=== PATIENT | male | born 1945 | race Caucasian/White ===

== ENCOUNTER → 2017-06-16 | Outpatient (CLI) | payer OTHER ==
--- NOTE | 2017-06-16 09:23 | RADRPT ---
EXAM DATE/TIME: 06/16/2017 08:25 [facility] COMPARISON: No previous studies available for comparison. INDICATIONS : Chest heaviness. MEDICAL HISTORY : None. SURGICAL HISTORY : None. ENCOUNTER: Initial ACUITY: 1 year PAIN SCORE: 0/10 LOCATION: Bilateral chest FINDINGS: PA and lateral views of the chest demonstrate the lungs to be symmetrically aerated without evidence of mass, infiltrate or effusion. The cardiomediastinal contours are unremarkable. Osseous structure s are intact. CONCLUSION: No acute disease. Michael Castro MD FACR on June 16, 2017 at 9:21 Board Certified Radiologist. This report was verified electronically.
--- NOTE | 2017-06-16 19:59 | ECHRPT ---
Indication: Chest Pain CONCLUSIONS The left ventricular systolic function is normal with an estimated ejection fraction of 60% Normal left ventricular size. Wall thickness is normal. Aortic valve sclerosis is present. Trace aortic valve regurgitation. BP: / HR: Rhythm: Sinus MEASUREMENTS (Male / Female) Normal Values Technical Quality:Fair 2D ECHO LV Diastolic Diameter PLAX 4.2 cm 4.2 - 5.9 / 3.9 - 5.3 cm LV Systolic Diameter PLAX 3.0 cm IVS Diastolic Thickness 1.0 cm 0.6 - 1.0 / 0.6 - 0.9 cm LVPW Diastolic Thickness 1.0 cm 0.6 - 1.0 / 0.6 - 0.9 cm LV Relative Wall Thickness 0.5 RV Internal Dim ED PLAX 2.9 cm LVOT Diameter 2.0 cm LA Systolic Diameter LX 3.8 cm 3.0 - 4.0 / 2.7 - 3.8 cm LV Ejection Fraction MOD 4C 65.9 % LV Ejection Fraction 4C AL 69.3 % M-MODE Aortic Root Diameter MM 3.6 cm AV Cusp Separation MM 1.8 cm DOPPLER AV Peak Velocity 124.0 cm/s AV Peak Gradient 6.2 mmHg AI Peak Velocity 153.0 cm/s AI Peak Gradient 9.4 mmHg AI Pressure Half Time 2171.0 ms LVOT Peak Velocity 72.1 cm/s LVOT Peak Gradient 2.1 mmHg AV Area Cont Eq pk 1.8 cm MV Area PHT 3.0 cm Mitral E Point Velocity 54.8 cm/s Mitral A Point Velocity 57.8 cm/s Mitral E to A Ratio 0.9 LV E' Lateral Velocity 7.9 cm/s Mitral E to LV E' Lateral Ratio 6.9 LV E' Septal Velocity 6.2 cm/s Mitral E to LV E' Septal Ratio 8.8 FINDINGS LEFT VENTRICLE The left ventricular systolic function is normal with an estimated ejection fraction of 60% Normal left ventricular size. Wall thickness is normal. RIGHT VENTRICLE Normal right ventricular size and systolic function. LEFT ATRIUM The left atrial size is normal. RIGHT ATRIUM The right atrial size is normal. ATRIAL SEPTUM Normal atrial septal thickness without atrial level shunting by limited color doppler interrogation. AORTA The aortic root and proximal ascending aorta are normal in size on limited imaging. MITRAL VALVE Structurally normal mitral valve. No mitral valve stenosis or regurgitation. AORTIC VALVE Trileaflet aortic valve. Aortic valve sclerosis is present. Trace aortic valve regurgitation. TRICUSPID VALVE Structurally normal tricuspid valve. No tricuspid valve stenosis or regurgitation. PULMONARY VALVE The pulmonary valve is not well visualized. VESSELS The inferior vena cava is normal in size. PERICARDIUM No pericardial effusion. Belle Flores MD, FACC (Electronically Signed) Final Date:16 June 2017 19:57
--- NOTE | 2017-06-17 14:44 | HM ---
Date Performed: 06/16/2017 Time Performed: 09:26:00 HOOKUP DATE: 06/16/17 09:26:00 AM Wed ANALYSIS START TIME: 06/16/2017 9:31:00 AM ANALYSIS END TIME: 06/17/2017 9:34:59 AM PATIENT AGE: 71 PATIENT HEIGHT PATIENT WEIGHT DRUG LIST PATIENT DIAGNOSIS: chest pain TEST NARRATIVE: The patient's average heart rate was 65 BPM. No episodes of tachycardia wer e noted. Heart rates less than 50 BPM were noted 1% of the time. No pauses exceeding 2.0 seconds were noted. 144 ventricular ectopics, which represented < 1% of the total beat count, were noted . The highest ventricular ectopic frequency occurred from 07:00 AM to 08:00 AM Sheila. During this kishore e 27 VE(s) occurred. Ventricular ectopics were observed as 144 isolated beat(s) only. No couplets o r runs were noted. 7 supraventricular ectopics, which represented < 1% of the total beat count, w ere noted. The highest supraventricular ectopic frequency occurred from 02:00 AM to 03:00 AM Sheila. D uring this time 3 SVE(s) occurred. No episodes of ST depression (defined as -1.0 mm or more) were noted in channel 1. No episodes of ST depression (defined as -1.0 mm or more) were noted in channel 2. No episodes of ST depression (defined as -1.0 mm or more) were noted in channel 3. TEST INTERPRETATION: Holter monitor demonstrates Sinus rhythm with sinus bradycardia at 45 bpm at 3:00 am. Rare PVC and PAC was noted. One supraventricular triple t was noted. Signed by : Gabe perez
== END ==
LOC: HRAD 07:59
PROVIDERS: ATTEND Internal Medicine
DX: R07.89 Other chest pain (principal); Z82.49 Family history of ischemic heart disease and other diseases of the circulatory system
CPT/HCPCS: 71020; 93225; 93226; 93306

== ENCOUNTER 2017-09-17 05:41 | Day surgery (SDC) | payer OTHER ==
[~2017-09-17] VITALS: Ht 185.4 cm; Wt 95.7 kg
[2017-09-17] MEDS ORDERED: IOHEXOL 350 MG/ML 100 ML BTL (for Cath Lab) OTHER ONE (05:42)
[2017-09-17] MEDS ORDERED: ASPIRIN 325 MG TAB PO SCH (06:00)
[2017-09-17] MEDS ORDERED: NS 1000P @30 MLS/HR (KVO) IV SCH (06:00)
[2017-09-17 06:23] LABS: AUTOMATED NEUTROPHIL # 4.1 TH/MM3 (1.8-7.7); BASOPHIL # 0.1 TH/MM3 (0-0.2); BASOPHIL % 1.1 % (0.0-2.0); EOSINOPHIL # 0.3 TH/MM3 (0-0.4); EOSINOPHIL % 4.7 % (0.0-4.0); HEMATOCRIT 42.3 % (39.0-51.0); HEMOGLOBIN 14.8 GM/DL (13.0-17.0); LYMPH % 21.1 % (9.0-44.0); LYMPHOCYTE # 1.4 TH/MM3 (1.0-4.8); MEAN CELL VOLUME 89.2 FL (80.0-100.0); MEAN CORPUSCULAR HEMOGLOBIN 31.2 PG (27.0-34.0); MEAN PLATELET VOLUME 8.4 FL (7.0-11.0); MONO % 9.5 % (0.0-8.0); MONOCYTE # 0.6 TH/MM3 (0-0.9); NEUT % 63.6 % (16.0-70.0); PLATELET COUNT 212 TH/MM3 (150-450); RED BLOOD COUNT 4.75 MIL/MM3 (4.50-5.90); RED CELL DISTRIBUTION WIDTH 13.3 % (11.6-17.2); WHITE BLOOD COUNT 6.5 TH/MM3 (4.0-11.0)
[2017-09-17 06:31] LABS: INTERNATIONAL NORMALIZED RATIO 1.1 RATIO; PROTHROMBIN TIME - PATIENT 11.1 SEC (9.8-11.6)
[2017-09-17] MEDS ORDERED: ASPI-183 PO (06:32)
[2017-09-17] MEDS ORDERED: ISOS30TA3 PO (06:32)
[2017-09-17] MEDS ORDERED: VITACAP7 PO (06:32)
[2017-09-17] MEDS ORDERED: LEVO175T2 PO (06:32)
[2017-09-17] MEDS ORDERED: METO1TAB42 PO (06:32)
[2017-09-17 06:34] VITALS: BP 139/78; PULSE 53; RESP 18; O2SAT 53
[2017-09-17 06:40] LABS: BICARBONATE 28.5 MEQ/L (21.0-32.0); CALCIUM 8.5 MG/DL (8.5-10.1); CREATININE 1.35 MG/DL (0.60-1.30)
[2017-09-17] MEDS ORDERED: HEPARIN-NS/PF FLUSH BAG 2,000 ML IV FLUSH ONE (07:10)
[2017-09-17] MEDS ORDERED: MIDAZOLAM HCL 2 MG/2 ML VIAL ONE (07:10)
[2017-09-17] MEDS ORDERED: NITROGLYCERIN INJ 5 ML ONE (07:10)
--- NOTE | 2017-09-17 09:09 | CATHPROC ---
[employer] HIS Report Study Information Study Number Admission Scheduled Start Study Start [id number] Sep 17 2017 5:41AM 09/17/2017 Sep 17 2017 7:04AM [place] [facility] Cardiac Catheterization Admit Source Facility Department Other [facility] - Board Certified Family Physician Physician and Clinical Staff Initial Talon Dobbs Operations Systems Specialist Catalina Jovel,RN Recorder Fe Martinez ,RT(R) Scrub Lenka Stout,RT(R) Procedures Performed Procedure Location (Site) Vessel Name Angiogram LV LV Ventricle Coronary Angiograms LCA Left Coronary Coronary Angiograms RCA Right Coronary L Heart Cath Equipment Time Imaging Assistant Description Size Mfg Part Number Used/Scraped TRANSDUCER, TRUWAVE [id number] 07:16 TOPETE GUADALUPE * Used W/STOCKCOCK *[id number] 534-676T *[id number] 534-545T *[id number] 534-546T *[id number] 534-547T *[id number] 534-620T *[id number] 534-617T *[id number] 534-622T *[id number] PIGTAIL ANG. 145 INFINITI [id number] CATHETER *[id number] 07:16 [employer] INDUSTRIES PACK, CCL CUSTOM * Used *[id number] 07:16 [employer]ental [employer] PACER PEN, SKIN DUAL W/ RULER * Used *[id number] PIG ANG 145 DXTERITY 08:37 MEDTRONIC FR 5 [id number] Used CATHETER [id number] 07:16 [employer] MEDICAL SHEATH, FR6.5 PRELUDE 11CM FR 6.5 038ACT Used *[id number] 07:16 [employer] MEDICAL WIRE, 3MMJ .035 180CM 180CM Used *[id number] 07:57 [employer] MEDICAL WIRE, EXCHANGE 260CM 3MMJ 260CM Used *[id number] 07:16 NAMIC MANIFOLD, 4 PORT * Used *[id number] 08:40 NAMIC TUBING, HIGH PRESSURE 20" 20" Used *[id number] 07:16 [employer]COMED OMNIPAQUE, 350 MG, 100ML 100ML [id number] Used 08:29 [employer]COMED OMNIPAQUE, 350 MG, 150ML 150ML [id number] Used 08:29 NYCOMED OMNIPAQUE, 350 MG, 150ML 150ML [id number] Used [id number] 07:16 [facility],WARM AIR CCL * Used *[id number] Equipment Model, Serial, Lot Number and Expiration Data Description Model Number Serial Number Lot Number Expiration Date CHARMAINE HALE 145 DXTERITY CATHETER [id number] 08-04-2019 History: Current Medications Medication Dosage/Unit Route Frequency Last Date/Time Taken ASA LOPRESSOR Imdur Synthroid NTG SL History: Allergies Allergy Reaction No Known Allergies History: Risk Factors Family History of Hypertension Dyslipidemia Previous OR Previous Heart Failure Premature CAD No Yes Yes No No Prior Valve Prior PCI Prior CABG Surgery No No No Cerebrovascular Peripheral Artery Chronic Lung On Dialysis Diabetes Disease Disease Disease No No No Yes No History: Symptoms/Diagnosis Selection Items Chest pain History: Stress Tests Stress or Imaging Studies Performed Yes Standard Exercise Stress Test No Stress Echo No Stress Test SPECT Stress Test SPECT Result Yes Negative Stress Test CMR No Cardiac CTA Cardiac CTA Result Coronary Calcium Score Yes 3VD No History: Other Current Smoker Method Quit Packs a Day Years Used Pack Years No Cigarettes 50 Years Ago 1 4 4 Labs Hgb (g/dl) Hct (%) WBC (l/cumm) Platelets (thousands) 11.60-17.00 35.00-51.00 4.00-11.00 150.00-450.00 14.8 42.3 6.5 212 Glucose (mg/dl) BUN (mg/dl) Creatinine (mg/dl) BUN:Creatinine (1:x) 74.00-106.00 7.00-18.00 0.50-1.30 10.00-20.00 88 26 1.4 18.6 Na (meq/l) K (meq/l) 136.00-145.00 3.50-5.10 143 3.9 INR (PTT:PT) 0.90-1.10 1.1 CPK-MB (ng/ML) 0.50-3.60 Not Drawn Medication Medication Total Dose (Bolus/Oral) Medication Total Dosage/Unit 1% XYLOCAINE 20 mL FENTANYL 50 mcg VERSED 1 mg Medications (Bolus/Oral) Medication Time Given Dosage/Unit Administered By Reason VERSED 09/17/2017 7:44:17 AM 1 mg Catalina Jovel 1 mg VERSED given in lab by Catailna Jovel, RN in Left Antecubital via Peripheral IV. Ordered by Talon Isaacs. 1% XYLOCAINE 09/17/2017 7:47:07 AM 20 mL Talon Long 20 mL 1% XYLOCAINE given in lab by Talon Long in Right Groin via Subcutaneous. Ordered by Talon Long. FENTANYL 09/17/2017 8:10:26 AM 50 mcg Catalina Jovel 50 mcg FENTANYL given in lab by Catalina Jovel RN in Left Antecubital via Peripheral IV. Ordered by Talon Long. Medication (Drip) Medication Time Given Dosage/Unit Concentration/Unit Diluent (ml) Solution IV Solutions 09/17/2017 7:04:21 AM 50 mL (IV) NaCl .9 Patient arrived on IV Solutions in Left Antecubital via Peripheral IV. Pump/Drip Flow using NaCl .9. Initial Case Assessment Cardiovascular HR NIBP Chest Pain 48 133/70 0 Edema Present Skin color Skin None Normal Warm Dry Circulatory - Right Pulses Dorsalis Pedis Femoral 1 2 Scale (0,1,2,3,4,d) Circulatory - Left Pulses Dorsalis Pedis Femoral 1 2 Scale (0,1,2,3,4,d) Circulatory - Lower Extremities Color Lower Right Color Lower Left Normal Normal Neurological State Oriented to time-place- Alert Moves all extremities person Respiration - General Respiration Rate SpO2 (%) (B/min) 20 98 Final Case Assessment Cardiovascular HR NIBP Chest Pain 48 133/70 0 Edema Present Skin color Skin None Normal Warm Dry Circulatory - Right Pulses Dorsalis Pedis Femoral 1 2 Scale (0,1,2,3,4,d) Circulatory - Left Pulses Dorsalis Pedis Femoral 1 2 Scale (0,1,2,3,4,d) Circulatory - Lower Extremities Color Lower Right Color Lower Left Normal Normal Neurological State Oriented to time-place- Alert Moves all extremities person Respiration - General Respiration Rate SpO2 (%) (B/min) 20 98 Chronological Log Time Study Chronological Log 7:04:05 Patient arrived via Bed. 7:04:06 Patient Name, D.O.B, / Armband Verified By R.N. 7:04:06 Consent signed by the physician and the patient and verified by the Board Certified Family Physician staff. 7:04:07 Pre-op and post- op instructions given; patient acknowledges understanding of instructions. 7:04:08 Verbal Stimulation=2 Physical Stimulation=2 Airway=2 Respiration=2 TOTAL=8. (0=absent, 1=li mited, 2=present) 7:04:15 Patient has been NPO for More than 6Hrs. 7:04:15 Skin Breakdown- none per patient 7:04:16 Patient Warmer Placed on the Table. 7:04:18 Tyrell Prominences Protected 7:04:20 IV Warmer Connected To Patient. 7:04:20 A # 20 IV was noted in the Antecubital (left). Grade = 0 7:04:21 Patient arrived on IV Solutions in Left Antecubital via Peripheral IV. Pump/Drip Flow using NaCl .9. 7:04:22 History and physical on the chart or being dictated. Assessment: Initial Case, HR=48 BPM, SSDJ=778/70 mmhg, Chest Pain=0, Edema=None, Color=Normal, S kin = Warm, Dry Right Pulses: Yosvany Ped=1, Femoral=2 Left Pulses: Yosvany Ped=1, Femoral=2 7:04:22 Lower Right Extremities: Color=Normal Lower Left Extremities: Color=Normal Neurological: State=Alert, Ox3, NINA Respiration: Resp=20 B/min, SpO2=98 % Vitals capture started with the following parameters, Patient=Adult, Interval=5 min, Initial Pre hvpel=857 mmHg, 7:08:34 Deflation Rate=5 mmHg, Cuff placed on Unknown 7:09:14 HR=47 bpm, AWKJ=288/70 mmhg, SpO2=97.0 %, Resp=23 B/min, Pain=0, Daljit=10, Fuentes=2 7:14:11 HR=45 bpm, ULVK=394/77 mmhg, SpO2=97.0 %, Resp=16 B/min, Pain=0, Daljit=10, Fuentes=2 7:14:33 Bilateral groins prepped with 2% chlorhexidine, and draped after a 3 minute waiting time. 7:17:30 Pressure channel 1 zeroed. 7:17:43 Reference ECG taken 7:18:44 paged 7:19:14 HR=48 bpm, TXUZ=781/77 mmhg, SpO2=94.0 %, Resp=11 B/min, Pain=0, Daljit=10, Fuentes=2 7:24:09 HR=51 bpm, BMCK=970/74 mmhg, SpO2=95.0 %, Resp=15 B/min 7:29:53 HR=49 bpm, PZGQ=547/75 mmhg, SpO2=97.0 %, Resp=15 B/min 7:34:13 HR=50 bpm, QKBS=153/69 mmhg, SpO2=97.0 %, Resp=20 B/min 7:35:02 MD arrived. 7:39:14 HR=48 bpm, AJLS=133/73 mmhg, SpO2=97.0 %, Resp=26 B/min, Pain=0, Daljit=10, Fuentes=2 Time Out. Correct patient, correct procedure, correct physician, power not loaded with contrast with surgical team 7:43:07 present. Time Out Concurred by MD and individual staff in procedure. 7:44:17 1 mg VERSED given in lab by Catalina Jovel, NORRIS in Left Antecubital via Peripheral IV. Order ed by Talon Long. 7:44:52 HR=45 bpm, CNAX=245/73 mmhg, SpO2=97.0 %, Resp=13 B/min, Pain=0, Daljit=10, Fuentes=2 7:45:22 Case Start 7:47:07 20 mL 1% XYLOCAINE given in lab by Talon Long in Right Groin via Subcutaneous. Ordered by Talon Long. 7:48:24 Access site was Right Femoral Artery. 7:48:32 A SHEATH, FR6.5 PRELUDE 11CM FR 6.5 was advanced into the Fem Art (right) using the Percutan eous technique. 7:49:10 HR=51 bpm, WXRS=559/69 mmhg, SpO2=97.0 %, Resp=16 B/min, Pain=0, Daljit=10, Fuentes=2 A JL 4.5 INFINITI CATHETER FR 6 was advanced over a wire. OMNIPAQUE, 350 MG, 100ML 100ML was use d for 7:49:56 injections. 7:51:45 Catheter was removed A 3DRC INFINITI CATHETER FR 6 was advanced over a wire. OMNIPAQUE, 350 MG, 100ML 100ML was used for 7:52:48 injections. Recorded Pressure: Ao, HR=53, Condition=Condition 1 7:54:30 (Aorta) Ao 121/61/86 7:54:48 HR=51 bpm, EUVM=148/77 mmhg, SpO2=97.0 %, Resp=17 B/min, Pain=0, Daljit=10, Fuentes=2 7:55:12 The RCA was injected and visualized at various angles. OMNIPAQUE, 350 MG, 100ML 100ML used. 7:56:57 The previous wire was exchanged for a WIRE, EXCHANGE 260CM 3MMJ 260CM. 7:57:24 Catheter was removed A JL 5.0 INFINITI CATHETER FR 6 was advanced over a wire. OMNIPAQUE, 350 MG, 100ML 100ML was use d for 7:58:37 injections. 7:59:12 HR=57 bpm, USZN=998/77 mmhg, SpO2=97.0 %, Resp=12 B/min, Pain=0, Daljit=10, Fuentes=2 8:01:25 The LCA was injected and visualized at various angles. OMNIPAQUE, 350 MG, 100ML 100ML used. After removing the current catheter a JL 4.5 INFINITI CATHETER FR 6 was advanced over a WIRE, EX CHANGE 260CM 8:03:57 3MMJ 260CM. 8:04:15 HR=51 bpm, ADYR=695/77 mmhg, SpO2=98.0 %, Resp=23 B/min, Pain=0, Daljit=10, Fuentes=2 8:09:19 HR=49 bpm, LONI=280/76 mmhg, SpO2=97.0 %, Resp=14 B/min, Pain=0, Daljit=10, Fuentes=2 8:10:26 50 mcg FENTANYL given in lab by Catalina Jovel, NORRIS in Left Antecubital via Peripheral IV. O rdered by Talon Long. After removing the current catheter a AL 1 INFINITI CATHETER FR 5 was advanced over a WIRE, EXCH MOISES 260CM 8:13:48 3MMJ 260CM. 8:14:18 HR=51 bpm, SSWA=220/75 mmhg, SpO2=98.0 %, Resp=20 B/min 8:16:32 Catheter was removed A AL 2 INFINITI CATHETER FR 5 was advanced over a wire. OMNIPAQUE, 350 MG, 100ML 100ML was used for 8:17:19 injections. 8:19:13 HR=55 bpm, SNHE=823/72 mmhg, SpO2=94.0 %, Resp=24 B/min, Pain=0, Daljit=10, Fuentes=2 After removing the current catheter a AL 3 INFINITI CATHETER FR 5 was advanced over a WIRE, EXCH MOISES 260CM 8:21:16 3MMJ 260CM. 8:22:53 Catheter was removed A JL 4.0 INFINITI CATHETER FR 6 was advanced over a wire. OMNIPAQUE, 350 MG, 100ML 100ML was use d for 8:23:13 injections. 8:24:18 HR=53 bpm, KVXP=809/70 mmhg, SpO2=94.0 %, Resp=32 B/min, Pain=0, Daljit=10, Fuentes=2 8:28:49 The LCA was injected and visualized at various angles. OMNIPAQUE, 350 MG, 100ML 100ML used. 8:29:13 HR=49 bpm, YHIO=802/67 mmhg, SpO2=95.0 %, Resp=25 B/min, Pain=0, Daljit=10, Fuentes=2 8:34:16 HR=49 bpm, HIRX=252/73 mmhg, SpO2=95.0 %, Resp=23 B/min, Pain=0, Daljit=10, Fuentes=2 After removing the current catheter a PIG ANG 145 DXTERITY CATHETER FR 5 was advanced over a WIR E, EXCHANGE 8:36:36 260CM 3MMJ 260CM. 8:39:19 HR=51 bpm, HZJB=644/70 mmhg, SpO2=97.0 %, Resp=36 B/min, Pain=0, Daljit=10, Fuentes=2 Recorded Pressure: LV, HR=52, Condition=Condition 1 8:39:27 (Left Ventricle) LV 131/6/17 8:41:03 The LV was injected at 10 cc/sec for a total of 40. OMNIPAQUE, 350 MG, 150ML 150ML used. Recorded Pressure: LV, Ao, HR=51, Condition=Condition 1 8:42:26 (Left Ventricle) LV 129/6/15, (Aorta) Ao 134/64/92 8:42:50 Catheter was removed 8:43:26 Case End Assessment: Final Case, HR=48 BPM, XDOH=636/70 mmhg, Chest Pain=0, Edema=None, Color=Normal, Ski n = Warm, Dry Right Pulses: Yosvany Ped=1, Femoral=2 Left Pulses: Yosvany Ped=1, Femoral=2 8:43:32 Lower Right Extremities: Color=Normal Lower Left Extremities: Color=Normal Neurological: State=Alert, Ox3, NINA Respiration: Resp=20 B/min, SpO2=98 % 8:43:46 Catheter(s) removed without difficulty 8:43:51 No case complications noted. 8:43:53 Cine recording checked. 8:43:55 Bedside Report will be given. 8:44:05 A Left Heart Cath was performed. 8:45:01 HR=51 bpm, BSAF=024/78 mmhg, SpO2=98.0 %, Resp=30 B/min, Pain=0, Daljit=10, Fuentes=2 8:46:03 Sheath(s) left in place, will be removed in Holding Area 8:46:05 Sterile dressing applied to site 8:48:02 Vitals capture stopped. 8:53:18 Patient moved to [facility] End Study - Contrast Media Used In Study Contrast Total Opened (mL) Total Used (mL) Total Wasted (mL) Omnipaque 160 160 0 End Study - Maximum Contrast Load Max Contrast Load (mL) 341.7 End Study - Radiation Exposure Fluoro Time (minutes) 17.5 End Study - Patient Disposition Complications Transferred To Interventional Outcome No Telemetry Bed No attempt made
--- NOTE | 2017-09-17 09:37 | MA ---
cc: Talon Long MD, Gregory P DO DATE: 09/17/2017 PROCEDURES PERFORMED: 1. Left heart catheterization. 2. Left ventriculography. 3. Coronary angiography. Technically difficult procedure due to extremely tortuous aorta, multiple catheter exchanges required and unusual anatomy of the left main. BRIEF HISTORY: Jareth Martinez of a 71-year-old man who has been having anginal symptoms described as a low-grade pressure in his chest. He has been tried on antianginal therapy and his symptoms have not improved. He had a nuclear stress test which did not show ischemia, but because of so far ongoing symptoms, he had a coronary CTA. The coronary CTA suggested 3-vessel disease. For this reason, cardiac catheterization was performed. DESCRIPTION OF PROCEDURE: The patient was brought to the cardiac catheterization lab in a fasting state. Using 1% lidocaine for local anesthesia, a 6.5-Russian sheath was inserted in the right femoral artery. This was easy because the right femoral artery has an outstanding pulse. I then decided to do the coronaries before the LV gram because of the elevated creatinine. As I inserted a guidewire up into the arch of the aorta, the arch of the aorta is unlooped and I switched to a 3DRC catheter to carefully get past the aortic arch into the ascending aorta. The 3DRC was then used to image the right coronary artery. I then exchanged over a wire to a left 5 Jesica. The left 4 Jesica sub-selected the circumflex vessel. Orthogonal views were obtained of the circumflex artery. I then tried switching the catheters to more selectively engage the LAD. A left 4.5 was not successful. A left 1, 2 or 3 Amplatz catheter was not successful. Finally, with a left 4 Jesica catheter I was able to position it before the bifurcation of the LAD and circumflex, in a somewhat funnel-shaped left main and was able to get adequate views of the LAD. He has 3-vessel disease which is somewhat complicated so I have elected not to go straight forward into intervention. All these catheter changes were made over a long J exchange wire. I then used an angled pigtail catheter to measure left ventricular pressure, followed by left ventriculography and then a pullback. The sheath is to be pulled manually. I plan to discuss the findings in further detail with the patient and probably get a cardiothoracic surgery consult. FINDINGS: I. HEMODYNAMICS : Left ventricular pressure is 129/6 with an end diastolic pressure of 15. Aortic pressure is 134/64 with a mean of 92. There was no gradient during pullback from the left ventricle to the aorta. II. LEFT VENTRICULOGRAPHY: Left ventriculography shows a symmetrically yeyo left ventricle. Estimated ejection fraction is 55%. There is no mitral regurgitation. The aorta is noted to be significantly ectatic and tortuous. III. 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 There is no narrowing at what would be considered the left main. The left anterior descending artery has about 30% proximal eccentric disease. There are 2 diagonal branches coming off, which are both small and appear unremarkable. The mid and distal LAD are somewhat diffusely diseased. There is a focal area of 70% mid LAD disease. There is also somewhat diffuse segment of 70% distal LAD disease. The circumflex artery gives off a large first obtuse marginal branch which has irregularities only. Just past the obtuse marginal branch. The mid-circumflex has an 80% stenosis, which extends into the origin of the major second obtuse marginal branch. There is marked tortuosity through this segment. The distal circumflex continues as a very small vessel which is subtotally occluded and has only TONG-1 flow. It is also very small. The right coronary artery is dominant. This vessel is also very tortuous proximally. There is a very proximal 80% stenosis and just past this is a second stenosis of about 30-40%. The remainder of the right coronary artery has irregularities and is a well suited target for bypass. CONCLUSIONS: 1. Preserved left ventricular function. 2. Three vessel coronary artery disease which is somewhat complex. 3. 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 RECOMMENDATIONS: The anatomy is complicated enough that my first recommendation at this point would be to go for revascularization with bypass surgery. We will discussed this further with the patient and if he is agreeable we will get a cardiothoracic surgery consult. MD MARY Forman/KERRI , 09:08 AM , 09:36 AM
[2017-09-17] MEDS ORDERED: SODIUM CHLOR 0.9% 1000 ML INJ 1,000 ML IV SCH (09:48)
[2017-09-17] MEDS ORDERED: oxyCODONE/ACETAMINOPHEN 5 MG/325 MG TAB PO PRN (10:00)
[2017-09-17] MEDS ORDERED: BACITRACIN OINT 0.9 GM PKT TOP ONE (10:00)
[2017-09-17] MEDS ORDERED: ONDANSETRON HCL 4 MG/2 ML VIAL IV PUSH PRN (10:00)
--- NOTE | 2017-09-17 11:56 | RADRPT ---
EXAM DATE/TIME: 09/17/2017 11:04 [facility] COMPARISON: No previous studies available for comparison. INDICATIONS : Pre-op CABG. MEDICAL HISTORY : Hypothyroidism. Coronary artery disease. SURGICAL HISTORY : Skin cancer removed. ENCOUNTER: Initial ACUITY: 1 day PAIN SCORE: 0/10 LOCATION: Bilateral legs. TECHNIQUE: Venous ultrasound of the left and right leg was performed from the inguinal ligament to the proximal calf. Real-time, color Doppler and spectral tracing, compression and augmentation techniques were us ed. FINDINGS: RIGHT LEG: There is normal compressibility of the deep venous system from the inguinal region to the proximal ca lf. No echogenic clot is seen in the lumen of the common femoral, femoral, popliteal, and posterior tibial veins. There is a normal response of the venous system to proximal and distal augmentation an d respiration. LEFT LEG: There is normal compressibility of the deep venous system from the inguinal region to the proximal ca lf. No echogenic clot is seen in the lumen of the common femoral, femoral, popliteal, and posterior tibial veins. There is a normal response of the venous system to proximal and distal augmentation an d respiration. CONCLUSION: 1. No sonographic evidence for lower extremity DVT. Teja King MD on September 17, 2017 at 11:53 Board Certified Radiologist. This report was verified electronically.
--- NOTE | 2017-09-17 11:58 | RADRPT ---
EXAM DATE/TIME: 09/17/2017 11:12 [facility] COMPARISON: No previous studies available for comparison. INDICATIONS : Pre-op CABG. MEDICAL HISTORY : Hypothyroidism. Coronary artery disease. SURGICAL HISTORY : Skin cancer removed. ENCOUNTER: Initial ACUITY: 1 day PAIN SCORE: 0/10 LOCATION: Bilateral legs. GREATER SAPHENOUS VEIN THIGH: PROXIMAL: Right 6 mm Left 6 mm MID: Right 4 mm Left 3 mm DISTAL: Right 3 mm Left 4 mm CALF: PROXIMAL: Right 3 mm Left 3 mm MID: Right 1 mm Left 2 mm DISTAL: Right 2 mm Left 1 mm FINDINGS: The venous system of the lower extremities are patent by color Doppler imaging. Measurements of the leg veins (in mm) are listed above. CONCLUSION: Venous mapping as above Michael Castro MD FACR on September 17, 2017 at 11:56 Board Certified Radiologist. This report was verified electronically.
--- NOTE | 2017-09-17 12:08 | RADRPT ---
EXAM DATE/TIME: 09/17/2017 11:33 [facility] COMPARISON: No previous studies available for comparison. INDICATIONS : Pre-op CABG. MEDICAL HISTORY : Hypothyroidism. Coroanry artery disease. SURGICAL HISTORY : Skin cancer removed. ENCOUNTER: Initial ACUITY: 1 day PAIN SCORE: 0/10 LOCATION: Bilateral neck PEAK SYSTOLIC VELOCITIES (cm/sec): ICA/CCA RATIO: Right: 1.3 Left: 1.0 ICA: Right: 83 Left: 54 CCA: Right: 64 Left: 57 ECA: Right: 50 Left: 66 VERTEBRAL: Right: 41 antegrade Left: 41 antegrade Elevated flow velocities and ICA/CCA ratios have been found to correlate with increased degrees of vessel stenosis, calculated as percentage of diameter relative to a normal segment of distal ICA/CCA FINDINGS: RIGHT CAROTID: No significant stenosis is visualized. There is mild calcified and noncalcified plaque in the caroti d bulb and proximal internal coronary artery. The waveforms are within normal limits. LEFT CAROTID: No significant stenosis is visualized. There is mild calcified and noncalcified plaque in the caroti d bulb and proximal internal cord artery. The waveforms are within normal limits. VERTEBRAL ARTERIES: Antegrade flow is seen in both vertebral arteries. MISCELLANEOUS: None. CONCLUSION: 1. Mild atherosclerotic plaque in the carotid bulbs and proximal internal carotid arteries bilaterall y. However, no significant stenosis is identified within either internal carotid artery (less than 50 % stenosis). 2. There is antegrade flow within both vertebral arteries. Mayank Malik MD on September 17, 2017 at 12:05 Board Certified Radiologist. This report was verified electronically.
--- NOTE | 2017-09-17 16:05 | RADRPT ---
EXAM DATE/TIME: 09/17/2017 15:52 [facility] COMPARISON: CHEST PA & LAT, June 16, 2017, 8:25. INDICATIONS : Pre-operative for CABG on 09/21/17. Evaluate for pneumothorax, pneumonia, or communicable disease. MEDICAL HISTORY : Hypothyroidism. Coroanry artery disease. SURGICAL HISTORY : Skin cancer removed. ENCOUNTER: Initial ACUITY: 1 day PAIN SCORE: 0/10 LOCATION: Bilateral chest FINDINGS: PA and lateral views of the chest demonstrate the lungs to be hyperaerated without evidence of mass, infiltrate or effusion. The cardiomediastinal contours are unremarkable. Osseous structures are int act. CONCLUSION: No acute disease. Vladimir Lazcano MD on September 17, 2017 at 16:03 Board Certified Radiologist. This report was verified electronically.
[2017-09-17 16:52] LABS: BILIRUBIN, URINE NEG (NEG); BLOOD, URINE NEG (NEG); GLUCOSE,URINE NEG (NEG); KETONE, URINE NEG (NEG); NITRITE,URINE NEG (NEG); PH, URINE 5.5 (5.0-8.5); URINE COLOR YELLOW (YELLW/STRAW); URINE LEUKOCYTE ESTERASE NEG (NEG)
--- NOTE | 2017-09-17 17:47 | PD.CAR.PN ---
CVT Progress Note Subjective/Hospital Course: pt seen and evaluated , full note dictated sts data discussed with pt RISK SCORES About the STS Risk Calculator Procedure: CAB Only Risk of Mortality: 1.196% Morbidity or Mortality: 11.942% Long Length of Stay: 4.067% Short Length of Stay: 49.336% Permanent Stroke: 0.832% Prolonged Ventilation: 7.141% DSW Infection: 0.399% Renal Failure: 4.297% Reoperation: 4.178% Objective: Vital Signs Date Time Temp Pulse Resp B/P (MAP) Pulse Ox O2 Delivery O2 Flow Rate FiO2 09/17/17 08:58 98 Room Air 09/17/17 06:34 53 18 139/78 (98) 53 Labs: Laboratory Tests Test 09/17/17 06:09 09/17/17 14:30 09/17/17 15:00 White Blood Count 6.5 TH/MM3 (4.0-11.0) Red Blood Count 4.75 MIL/MM3 (4.50-5.90) Hemoglobin 14.8 GM/DL (13.0-17.0) Hematocrit 42.3 % (39.0-51.0) Mean Corpuscular Volume 89.2 FL (80.0-100.0) Mean Corpuscular Hemoglobin 31.2 PG (27.0-34.0) Mean Corpuscular Hemoglobin Concent 35.0 % (32.0-36.0) Red Cell Distribution Width 13.3 % (11.6-17.2) Platelet Count 212 TH/MM3 (150-450) Mean Platelet Volume 8.4 FL (7.0-11.0) Neutrophils (%) (Auto) 63.6 % (16.0-70.0) Lymphocytes (%) (Auto) 21.1 % (9.0-44.0) Monocytes (%) (Auto) 9.5 % (0.0-8.0) Eosinophils (%) (Auto) 4.7 % (0.0-4.0) Basophils (%) (Auto) 1.1 % (0.0-2.0) Neutrophils # (Auto) 4.1 TH/MM3 (1.8-7.7) Lymphocytes # (Auto) 1.4 TH/MM3 (1.0-4.8) Monocytes # (Auto) 0.6 TH/MM3 (0-0.9) Eosinophils # (Auto) 0.3 TH/MM3 (0-0.4) Basophils # (Auto) 0.1 TH/MM3 (0-0.2) CBC Comment DIFF FINAL Differential Comment Prothrombin Time 11.1 SEC (9.8-11.6) Prothromb Time International Ratio 1.1 RATIO Blood Urea Nitrogen 26 MG/DL (7-18) Creatinine 1.35 MG/DL (0.60-1.30) Random Glucose 88 MG/DL (74-106) Calcium Level 8.5 MG/DL (8.5-10.1) Sodium Level 143 MEQ/L (136-145) Potassium Level 3.9 MEQ/L (3.5-5.1) Chloride Level 107 MEQ/L (98-107) Carbon Dioxide Level 28.5 MEQ/L (21.0-32.0) Anion Gap 8 MEQ/L (5-15) Estimat Glomerular Filtration Rate 52 ML/MIN (>89) Urine Color YELLOW (YELLW/STRAW) Urine Turbidity CLEAR (CLEAR) Urine pH 5.5 (5.0-8.5) Urine Specific [place] GREATER THAN 1.050 Urine Protein TRACE mg/dL (NEG-TRACE) Urine Glucose (UA) NEG mg/dL (NEG) Urine Ketones NEG mg/dL (NEG) Urine Occult Blood NEG (NEG) Urine Nitrite NEG (NEG) Urine Bilirubin NEG (NEG) Urine Urobilinogen LESS THAN 2.0 MG/DL (LESS Urine Leukocyte Esterase NEG (NEG) Microscopic Urinalysis Comment CULT NOT INDICATED Result Diagram: 09/17/17 0609 09/17/17 0609 Lien Elomre Sep 17, 2017 17:47
--- NOTE | 2017-09-17 19:22 | MB ---
cc: Barbara Boudreaux MD DATE: 09/17/2017 HISTORY OF PRESENT ILLNESS: This 71-year-old patient of Dr. Zaid Escamilla and Dr. Talon Long reports some chest discomfort with some left arm pain, even occurred after starting some Imdur, underwent cardiac catheterization electively today by Dr. Long showing an ejection fraction of 55%. He had mid distal stenosis 70%, the circ at 80%, the RCA 80%. We were consulted to evaluate for coronary artery bypass grafting. The aorta was somewhat torturous. The CT scan was reviewed by Dr. Barbara Boudreaux. PAST MEDICAL HISTORY: Coronary artery disease, angina, eczema, hyperlipidemia, hypertension, skin cancer, sleep apnea, statin intolerance. PAST SURGICAL HISTORY: Include rectal fissure repair, umbilical hernia repair. ALLERGIES: NO KNOWN ALLERGIES: HOME MEDICATIONS: 1. Aspirin. 2. Imdur. 3. Levothyroxine. 4. Metoprolol. FAMILY HISTORY: Mother at 69 from cardiomyopathy. Father from heart disease at 63. SOCIAL HISTORY: The patient is , smoked for about 4 years, quit 50 years ago. No alcohol. , 3 children, worked in manufacturing. REVIEW OF SYSTEMS: GENERAL: No night sweats, fever, heat and cold intolerance. SKIN: No psoriasis, itching or hives. HEENT: No blurred vision, hearing loss. RESPIRATORY: No cough, shortness of breath. CARDIOVASCULAR: As above in the HPI. GASTROINTESTINAL: No diarrhea or vomiting. GENITOURINARY: No burning, frequency, urgency. CENTRAL NERVOUS SYSTEM: No history of TIA, CVA or seizure disorder. ENDOCRINOLOGY: Positive for hypothyroidism. PHYSICAL EXAMINATION: VITAL SIGNS: Blood pressure 140/70, heart rate of 50, room air saturation 98, afebrile. GENERAL: The patient is awake, alert, in no acute distress. HEENT: Head is normocephalic, atraumatic. Pupils equal and reactive. Oral mucosa pink, moist. NECK: Supple. No JVD. HEART: Sounds S1, S2. Regular rate and rhythm. No rubs, murmurs, or gallops. LUNGS: Clear to auscultation. No wheezes, rales or rhonchi. ABDOMEN: Soft, nontender. No masses or organomegaly. EXTREMITIES: No cyanosis, clubbing, or edema. LABORATORY WORK: Shows hemoglobin 14, hematocrit of 42, white cell count is 6.5, platelet count of 212. Sodium 143, potassium 3.9, BUN 26 with a creatinine of 1.35. Hemoglobin A1c pending. INR 1.1. Urinalysis is unremarkable. MRSA screen pending. DIAGNOSTIC STUDIES: Carotid ultrasound shows some mild atherosclerotic plaques in the carotid bulbs, less than 50 percent stenosis. Chest x-ray: No acute disease. Lower extremity ultrasound: No DVT. Vein targets in the legs are good. IMPRESSION AND PLAN: This is a 71-year-old patient with multivessel disease. Cardiac films have already been evaluated by Dr. Barbara Boudreaux. At this time, procedures, alternatives and risks have been discussed with the patient, and the patient is agreeable to proceed. Plan will be for the 09/28/2017 as an elective surgery. Dictated by KETAN Tai MD OSWALDO Abbott/PIERRE , 05:45 PM , 07:21 PM
--- NOTE | 2017-09-17 20:40 | EKG ---
Date Performed: 09/17/2017 Time Performed: 06:16:34 PTAGE: 71 years EKG: Sinus bradycardia Interpretation accuracy is limited due to baseline borderline artifact Re polarization abnormality Normal ECG except for rate NO PREVIOUS TRACING DOCTOR: Christophe Orellana Interpretating Date/Time 09/17/2017 20:39:18
[2017-09-17 22:00] LABS: HEMOGLOBIN A1C 5.4 % (4.3-6.0)
== END 2017-09-17 16:20 | disposition home or self-care (01) ==
LOC: HDOC 05:41 → HDIC 05:41 → HDOC 16:20
PROVIDERS: ATTEND Internal Medicine Cardiovascular Disease
DX: R07.9 Chest pain, unspecified (principal); I25.10 Atherosclerotic heart disease of native coronary artery without angina pectoris; I77.1 Stricture of artery; Z79.899 Other long term (current) drug therapy; E03.9 Hypothyroidism, unspecified; I65.29 Occlusion and stenosis of unspecified carotid artery; G47.30 Sleep apnea, unspecified
CPT/HCPCS: 71046; 80048; 81001; 83036; 85025; 85610; 86850; 86900; 86901; 87641; 93005; 93458; 93880; 93970; 93998; 94010; 99152; 99153; C1769; C1893; J1644; J2250; J3010; Q9967

== ENCOUNTER 2017-09-28 05:35 | Inpatient (IN) | payer OTHER, MEDICARE ==
[2017-09-28] VITALS (8 sets, daily range): BP systolic 110–137; BP diastolic 48–76; PULSE 57–87; RESP 12–16; TEMP 96.8–97.4; O2SAT 96–99
[~2017-09-28] VITALS: Ht 185.4 cm; Wt 101.5 kg
[~2017-09-28 05:35] MED LIST: ASPI-183 PO; ISOS30TA3 PO; LEVO175T2 PO; METO1TAB42 PO; VITACAP7 PO
[2017-09-28] MEDS ORDERED: INSULIN REGULAR 100 UNITS in NS 100 ML IV PRN (06:00)
[2017-09-28] MEDS ORDERED: METOPROLOL TARTRATE 25 MG TAB PO SCH (06:00)
[2017-09-28] MEDS ORDERED: POVIDONE IODINE 5% (ANTISEPSIS KIT) 4 APPLICATIONS EACH NARE PRN (06:00)
[2017-09-28] MEDS ORDERED: CEFAZOLIN 500 MG in NS IRR BTL 500 ML IRRIGATION SCH (06:00)
[2017-09-28] MEDS ORDERED: DEXTROSE 50% IN WATER 50 ML VIAL(D50) IV PUSH PRN ×2 (06:00→13:30)
[2017-09-28] MEDS ORDERED: CEFAZOLIN INJ 2,000 MG in SODIUM CHLORIDE 0.9% INJ 100 ML IV SCH (06:00)
[2017-09-28] MEDS ORDERED: SODIUM CHLORID 0.9% 500 ML IV PRN (06:00)
[2017-09-28] MEDS ORDERED: CHLORHEXIDINE GLUCONATE 2 % 1 PACK (2 CLOTHS) TOPICAL PRN (06:00)
[2017-09-28] MEDS ORDERED: CHLORHEXIDINE GLUCONATE 4% SOLN 120 ML BTL TOPICAL SCH (06:00)
[2017-09-28] MEDS ORDERED: PAPAVERINE 60 MG-NITROGLYCERIN 100 MCG-DILTIAZEM 100 MG in NS 100 ML IRRIGATION SCH ×4 (06:00)
[2017-09-28] MEDS ORDERED: SODIUM CHLORIDE 0.9% FLUSH 10 ML FLUSH IV FLUSH PRN ×3 (06:00→13:00)
[2017-09-28] MEDS: LACTATED RINGER'S 1000 ML IV PRN ×2 (06:15→17:25)
[2017-09-28] MEDS ORDERED: ceFAZolin INJ 1,000 MG VIAL ONE (06:24)
[2017-09-28] MEDS ORDERED: methylPREDNISolone SOD SUCC 125 MG/2 ML VIAL ONE (06:24)
[2017-09-28] MEDS ORDERED: VANCOMYCIN HCL 1000 MG VIAL ONE (06:25)
[2017-09-28] MEDS ORDERED: HEPARIN SODIUM - SQ 10,000 UNITS/ML VIAL ONE (06:25)
[2017-09-28] MEDS ORDERED: ACETAMINOPHEN 1000 MG/100 ML 100 ML IV ONE (06:46)
[2017-09-28] MEDS ORDERED: SUGAMMADEX SODIUM 200 MG/2 ML VIAL IV PUSH ONE (06:46)
[2017-09-28] MEDS ORDERED: fentaNYL CITRATE 250 MCG/5 ML AMP ONE (06:47)
[2017-09-28] MEDS ORDERED: MIDAZOLAM HCL 5 MG/5 ML VIAL ONE (06:47)
[2017-09-28] MEDS ORDERED: CARDIOPLEGIC IRR 2,000 ML ONE (07:55)
[2017-09-28] MEDS ORDERED: POTASSIUM CHLORIDE 20 MEQ/10 ML VIAL ONE (07:55)
[2017-09-28] MEDS ORDERED: SODIUM BICARBONATE 8.4% INJ 50 ML ONE (07:55)
[2017-09-28] MEDS ORDERED: MANNITOL INJ 100 ML ONE (07:56)
[2017-09-28] MEDS ORDERED: CALCIUM CHLORIDE 10% SOLN 1 GRAM/10 ML SYR ONE (07:56)
[2017-09-28] MEDS ORDERED: ALBUMIN 25% INJ 50 ML IV ONE (07:57)
[2017-09-28] MEDS ORDERED: HEPARIN SODIUM - IV 10,000 UNITS/10 ML VIAL ONE (07:57)
[2017-09-28] MEDS ORDERED: PROTAMINE SULFATE 50 MG/5 ML VIAL ONE (10:55)
[2017-09-28] MEDS ORDERED: SODIUM CHLOR 0.9% 250 ML INJ 750 ML IV ONE (12:00)
[2017-09-28] MEDS ORDERED: ARTIFICIAL TEARS OPTH OINT 3.5 APPLIC/3.5 GM TUBO EACH EYE ONE (12:00)
[2017-09-28] MEDS ORDERED: NS 100 ML (PAB BAG) 200 ML IV ONE (12:00)
[2017-09-28] MEDS ORDERED: PHENYLEPH/NS 1000 MCG/10 ML SYR IV ONE (12:00)
[2017-09-28] MEDS ORDERED: NITROGLYCERIN 50 MG/DEXTROSE 5% SOLN 250 ML BTL IV ONE (12:00)
[2017-09-28] MEDS ORDERED: VECURONIUM BROMIDE 10 MG VIAL IV ONE (12:00)
[2017-09-28] MEDS ORDERED: LACTATED RINGER'S 1000 ML INJ 2,000 ML IV ONE (12:00)
[2017-09-28] MEDS ORDERED: HEPARIN SODIUM - SQ 10,000 UNITS/ML VIAL OTHER ONE (12:00)
[2017-09-28] MEDS ORDERED: NORMOSOL R INJ 2,000 ML IV ONE (12:00)
[2017-09-28] MEDS ORDERED: TRANEXAMIC ACID INJ 1,000 MG/10 ML AMP IV ONE (12:00)
[2017-09-28] MEDS ORDERED: PROTAMINE SULFATE 50 MG/5 ML VIAL IV ONE (12:00)
[2017-09-28] MEDS ORDERED: LIDOCAINE HCL 1% PF 5 ML AMPULE OTHER ONE (12:00)
[2017-09-28] MEDS ORDERED: SODIUM CHLORID 0.9% 500 ML INJ 500 ML IV ONE (12:00)
[2017-09-28] MEDS ORDERED: MAGNESIUM SULFATE 1 GM/2 ML VIAL IV ONE (12:00)
[2017-09-28] MEDS ORDERED: DEXMEDETOMIDINE HCL 200 MCG/2 ML VIAL IV ONE (12:00)
[2017-09-28] MEDS ORDERED: PHENYLEPHRINE HCL 10 MG/ML VIAL IV ONE (12:00)
[2017-09-28] MEDS ORDERED: CALCIUM CHLORIDE INJ 1 GM in SODIUM CHLORIDE 0.9% INJ 100 ML IV PRN (12:15)
--- NOTE | 2017-09-28 12:17 | PD.OP ---
cc: Barbara Boudreaux MD; Talon Long MD Operative Report Date of Surgery: Sep 28, 2017 Preoperative Diagnosis: (1) CAD (coronary artery disease) (2) Angina pectoris Postoperative Diagnosis: same Procedure: CABG x 3 DE JESUS to LAD - fair SVG to OM2 - good SVG to PDA - good EVH Anesthesia: Dr. Marinelli Surgeon: Barbara Boudreaux Radiation Monitor(s): MUNIR Abdalla Operation and Findings: The risks, benefits, complications, treatment options, and expected outcomes were discussed with the patient. The possibilities of reaction to medication, pulmonary aspiration, perforation of viscus, bleeding, recurrent infection, the need for additional procedures, failure to diagnose a condition, and creating a complication requiring transfusion or operation were discussed with the patient. The patient concurred with the proposed plan, giving informed consent. The site of surgery properly noted/marked. The patient was taken to Operating Room, identified as Jareth Martinez and the procedure verified as CABG, EVH. A Time Out was held and the above information confirmed. Standard monitoring lines and Mora catheter were placed. General anesthesia was induced. The patient was prepped and draped in a sterile fashion. A median sternotomy was performed and electrocautery was used to obtain hemostasis. The left internal mammary artery was procured as a pedicle from the 7th rib to the 1st rib in the usual manner. Simultaneously left greater saphenous vein was procured from the left leg using a minimally invasive endoscopic technique. The vein was prepared for anastomosis and the leg wound was irrigated and closed in 2 layers. The pericardium was opened and a pericardial sling was created using interrupted 0 silk sutures. The patient was heparinized for cardiopulmonary bypass and the distal mammary pedicle was instrumented for anastomosis. The heart was instrumented for cardiopulmonary bypass in the usual manner. Antegrade blood cardioplegia was employed. The patient was placed on cardiopulmonary bypass. An aortic cross-clamp was applied and the heart was arrested using cold blood cardioplegia. Antegrade cardioplegia was administered after he each anastomosis. After adequate arrest, the distal right coronary circulation was investigated and the PDA was opened with a Hoopa blade and found to be a 1.5 millimeter good target. Saphenous vein was approximated to the RCA artery using a running 7 0 Prolene suture. The graft was measured for length and orientation and the proximal anastomosis was constructed to the ascending aorta using a running 5 0 Prolene suture after creating an aortotomy with a 5 millimeter punch. The 2nd circumflex marginal artery was then opened with a [place]opa blade and found to be a 1.5 millimeter good target. Saphenous vein was approximated to the OM2 artery using a running 7 0 Prolene suture. The graft was measured for length and orientation and was suspended from the pericardium. The distal LAD was opened with a [place] blade and found to be a 1.5 millimeter diffusely diseased fair target. The left internal mammary artery was approximated to the LAD using a running 7 0 Prolene suture. The pedicle was attached to the epicardium using interrupted 5 0 silk suture. The patient was systemically rewarmed and received a hotshot dose of warm blood cardioplegia. The aorta was vented and the proximal anastomosis to the OM2 graft was accomplished using a running 5 0 Prolene suture after creating an aortotomy was a 5 millimeter punch. The cross -clamp was removed and all proximal and distal anastomoses were examined for hemostasis. The patient was weaned from cardiopulmonary bypass. Protamine was given. There was no adverse reaction. Decannulation was carried out without incident. Wound was checked for hemostasis which was obtained using electrocautery. A 36 Azeri mediastinal and 32 Azeri left pleural chest tubes were placed and secured to the skin with 0 silk suture. The sternum was closed with stainless steel wire. The fascia was closed with 1. PDS. The subcutaneous tissue was closed using a running 2-0 Vicryl suture. The skin was closed with 4- 0 Monocryl. Sterile dressings were placed. At the end of the operation, all sponge, instruments, and needle counts were correct. The patient was transferred to the CVICU in stable condition. Findings: Diffuse disease in the LAD XC: 49 min CPB: 57 min Drains: mediastinal x 1 pleural x 1 Complications: none Disposition: to CVICU in stable condition Barbara Boudreaux MD Sep 28, 2017 12:17
[2017-09-28] MEDS ORDERED: POTASSIUM CHLOR 20 MEQ PREMIX 100 ML IV PRN ×2 (13:00→13:15)
[2017-09-28] MEDS ORDERED: ONDANSETRON HCL 4 MG/2 ML VIAL IV PUSH PRN (13:15)
[2017-09-28] MEDS ORDERED: POTASSIUM CHLORIDE 20 MEQ CONTROLLED RELEASE TAB PO PRN ×2 (13:15)
[2017-09-28] MEDS: ACETAMINOPHEN 1000 MG/100 ML 100 ML IV SCH ×2 (13:15→17:23)
[2017-09-28] MEDS ORDERED: LACTATED RINGER'S 1000 ML INJ 500 ML IV PRN (13:15)
[2017-09-28] MEDS ORDERED: RESP: RACEPINEPHRINE 2.25% 0.5 ML NEB NEB PRN (13:15)
[2017-09-28] MEDS ORDERED: MAGNESIUM SULFATE INJ 2 GM in SODIUM CHLORIDE 0.9% INJ 100 ML IV PRN ×2 (13:15→13:30)
[2017-09-28] MEDS ORDERED: ACETAMINOPHEN 650 MG SUPP RECTAL PRN (13:15)
[2017-09-28] MEDS ORDERED: SODIUM BICARBONATE 8.4% SOLN 50 MEQ/50 ML VIAL IV PUSH PRN ×2 (13:15)
[2017-09-28] MEDS ORDERED: METOPROLOL TARTRATE 5 MG/5 ML VIAL IV PUSH PRN (13:15)
[2017-09-28] MEDS ORDERED: ACETAMINOPHEN 325 MG TAB PO PRN (13:15)
[2017-09-28] MEDS ORDERED: DEXMEDETOMIDINE INJ 200 MCG in SODIUM CHLORIDE 0.9% INJ 50 ML IV PRN (13:15)
[2017-09-28] MEDS ORDERED: hydrALAZINE HCL 20 MG/ML VIAL IV PUSH PRN (13:15)
[2017-09-28] MEDS ORDERED: ALBUMIN 5% INJ 250 ML IV PRN (13:15)
[2017-09-28] MEDS ORDERED: RESP: ALBUTEROL 2.5 MG/IPRATROPIUM 0.5 MG NEB (PRN) NEB (13:15)
[2017-09-28] MEDS ORDERED: CALCIUM CHLORIDE 10% 1 GRAM/10 ML VIAL IV PUSH PRN (13:15)
--- NOTE | 2017-09-28 13:16 | RADRPT ---
EXAM DATE/TIME: 09/28/2017 12:38 [facility] COMPARISON: No previous studies available for comparison. INDICATIONS : Status Post CABG. MEDICAL HISTORY : Hypothyroidism. Coroanry artery disease SURGICAL HISTORY : Skin CA removed. ENCOUNTER: Initial ACUITY: 1 day PAIN SCORE: Non-responsive. LOCATION: Bilateral chest FINDINGS: Intermedi and sternotomy and CABG. Mediastinal drain and left chest tube present. No pneumothorax. Mi nimal perihilar and basilar atelectasis. There is a right internal jugular central venous catheter with tip in the superior vena cava. Endotracheal tube tip is approximately 4.5 cm above the maria l. There is a nasogastric tube coursing into the stomach. CONCLUSION: Trace atelectasis after median sternotomy and CABG. No pneumothorax. Mayank Avery MD on September 28, 2017 at 13:12 Board Certified Radiologist. This report was verified electronically.
[2017-09-28] MEDS ORDERED: RASS Change Order XX ONE (13:30)
[2017-09-28] MEDS ORDERED: GLUCAGON 1 MG/ML VIAL OTHER PRN (13:30)
[2017-09-28] MEDS ORDERED: INSULIN REGULAR (IV INFUSION) 100 UNITS in SODIUM CHLORIDE 0.9% INJ 99 ML IV PRN (13:30)
[2017-09-28] MEDS: CLEVIDIPINE INJ 50 ML IV PRN ×2 (13:51→22:30)
[2017-09-28] MEDS ORDERED: Post-op Orders (for Pharmacy) OTHER ONE (14:00)
[2017-09-28] MEDS: AMIODARONE 200 MG TAB PO SCH ×2 (14:00→22:27)
--- NOTE | 2017-09-28 14:46 | PD.CAR.PN ---
CVT Progress Note Subjective/Hospital Course: 71-year-old patient of Dr. Zaid Escamilla and Dr. Talon Long initially seen , who at that time reported some chest discomfort with some left arm pain , even occurred after starting some Imdur, underwent cardiac catheterization Dr. Long showing an ejection fraction of 55%. He had mid distal stenosis 70% , the circ at 80%, the RCA 80%. We were consulted to evaluate for coronary artery bypass grafting. The aorta was somewhat torturous. The CT scan was reviewed by Dr. Barbara Boudreaux. EF 60% PAST MEDICAL HISTORY: Coronary artery disease, angina, eczema, hyperlipidemia, hypertension, skin cancer, sleep apnea, statin intolerance, PAST SURGICAL HISTORY: Include rectal fissure repair, umbilical hernia repair. Objective: Vital Signs Date Time Temp Pulse Resp B/P (MAP) Pulse Ox O2 Delivery O2 Flow Rate FiO2 09/28/17 14:02 97 Nasal Cannula 5 09/28/17 14:02 97 Nasal Cannula 5.00 09/28/17 13:56 40 09/28/17 13:51 64 157/70 09/28/17 12:45 40 09/28/17 12:42 99 60 09/28/17 12:33 57 09/28/17 12:33 97.4 57 12 115/64 (81) 99 110/48 (68) 09/28/17 06:00 97.8 57 20 146/89 (108) 97 (1) Hyperlipemia Plan: statin intolerance (2) Hypertension (3) S/P CABG x 3 (4) CAD (coronary artery disease) (5) Angina pectoris Lien Elmore Sep 28, 2017 14:46
--- NOTE | 2017-09-28 14:50 | HHI.FF ---
Face to Face Verification Diagnosis: (1) CAD (coronary artery disease) (2) Angina pectoris (3) Hyperlipemia (4) Hypertension (5) S/P CABG x 3 (6) Obstructive sleep apnea Home Health Nursing Order: Medication education-adverse effect Wound care and dressing changes Nursing assessment with vital signs Instructions: Heart and Vascular Surgery patients *Special attention to sternal dressing Mandatory frequency Assess and evaluation, 4 days in a row The next week 3X week 2 times a week for 4 weeks 1 time a week for 5 weeks Schedule Heart and Vascular patients for full 60 day certification period Initial visit Review Open Heart Surgery Discharge Instructions (Sternal precautions, Activity, Elastic hose, Incision care, Driving, Incentive spirometry, Smoking, [place], Work and other) Need Betadine to paint incision Medication reconciliation Importance of follow up care/ check on appointments Make calendar record temperature daily When to call [facility] nurse, review instructions, phone list Incentive Spirometry, demonstration Visit 1- Begin discharge instruction for patient family and/ or caregiver using teach back method- Signs and symptoms of infection Disease characteristics Medicines and side effects Foods and nutrition/ appetite Infection control/ hand washing/ hygiene Visit 2- Continue teaching Discharge instructions- include additional information on smoking cessation , sternal dressing (sternal vac) Visit 3- Continue teaching- Cough and deep breathing, incision monitoring. Choose my plate Visit 4- Continue teaching- Discuss limitations Discuss how they are feeling Discuss progress toward goals Remaining visits- continue teaching and monitoring For any questions please call : Wednesday 8am-5pm Heart & Vascular Surgery Office ( Dr. Mcgee & Dr. Boudreaux), After Hours / Nights (5pm -8am) Weekends and Holidays Please call [facility] ([facility]) Charge Nurse PREVENA Single Use Negative Wound Therapy System Caregiver Instruction Sheet 1. A Prevena dressing system was applied to the chest incision during surgery , to promote wound healing. It works via a suction device (negative pressure wound therapy) to remove low to moderate levels of exudate (drainage) and infectious materials. We recommend that the device stay in place for up to seven days, from day of surgery. 2. Day of Surgery___/09/12 Day of Removal ___/04/14 3. The dressing should only be removed by a health rehab care assistant. Please arrange removal of device to coincide with Home Health visit and or with Nursing staff at Rehab 4. If skin reddening or irritation of skin occurs, or excessive drainage, please notify the Cardiovascular Surgeons office at [phone]. 5. Light showering is permissible; however the pump should be disconnected and placed in safe location, where it will not get wet. The dressing should not be exposed to direct spray or submerged in water. No bath tub / shower only. Ensure the end of the tubing attached to the dressing is facing down so that water does not enter the top of the tube. 6. To remove Prevena dressing: press purple button to turn off device / remove the suction. Then disconnect the tubing from the pump. The fixation strips should be stretched away from the skin and the dressing lifted at one corner and peeled back until it has been fully removed. 7. After removal, it is ok to shower daily using liquid dial soap and clean wash cloth, rinse and pat dry, and leave incision open to air dry. For any concerns regarding Prevena dressing, and or wounds, please contact Anusha Moura, patient navigator at [phone] or notify the Cardiovascular Surgeons office at [phone]. Incentive spirometry Q1 hr x 10, while awake, also use acapella device hourly whole awake Sternal Breast Bone Precautions: NO pushing or pulling, ( pt must use sternal pillow to support chest with all activities and with coughing ( takes up to 3 months breast bone to heal ) Daily incision care: ok to shower daily, no tub bath. Wash all incisions with liquid dial soap, clean wash cloth to each site, rinse and pat dry. Observe for any signs of infection, such as drainage which is dark yellow, thomas, green or foul smelling. Immediately report to the surgeon any drainage from the chest incision, or legs, and for any abnormal drainage from the chest tube sites. Notify surgeon if any temp >101.5 degrees F. When specialty dressing removed/ or if you do not have one, continue to shower daily as above, then rinse and pat incision dry and paint with betadine daily x 5 days. Allow steri strips to fall off if you have any. Avoid lotions, creams, salves, oils, etc. for the first month Please see attached forms for additional instructions regarding post Open Heart specialty wound vacuum dressings. ANA PAULA or Prevena , Dressing to be removed by Nursing staff on __10/05/[address]oudreaux patients , please obtain CBC, BMP, PA & Lat CXR in 2 weeks, results to Dr. Boudreaux ( prescription will be given) ( ) (Tele: [phone]) , F/U appointment: as per DC instructions: PCP in 2 weeks, CV surgeon 2 weeks, Shoe Salesperson 3-4 weeks For any questions regarding incisions/ dressing / meds / post op care or above Symptoms, Wednesday 8am-5pm Heart & Vascular Surgery Office ( Dr. Mcgee & Dr. Boudreaux), After Hours / Nights (5pm -8am) Weekends and Holidays Please call [facility] ([facility]) Charge Nurse I have seen patient Jareth Martinez on 09/28/17. My clinical findings support the need for the requested home health care services because: Deconditioned w/ increased weakness I certify that my clinical findings support that this patient is homebound because: Post-op weakness Line Elmore Sep 28, 2017 14:50
[2017-09-28] MEDS: POTASSIUM CHLOR 20 MEQ PREMIX 100 ML IV PRN ×2 (16:02→18:02)
[2017-09-28] MEDS: RESP: ALBUTEROL 2.5 MG/IPRATROPIUM 0.5 MG NEB (SCH) NEB ×2 (16:19→20:44)
[2017-09-28] MEDS ORDERED: KETOROLAC TROMETHAMINE 30 MG/ML (IVP) VIAL IV PUSH ONE (18:15)
[2017-09-28] MEDS: SODIUM CHLORIDE 0.9% FLUSH 10 ML FLUSH IV FLUSH SCH (21:00)
[2017-09-29] VITALS (21 sets, daily range): BP systolic 113–145; BP diastolic 46–84; PULSE 66–98; RESP 16–19; TEMP 97–98.9; O2SAT 94–99
[2017-09-29] MEDS: ACETAMINOPHEN 1000 MG/100 ML 100 ML IV SCH ×2 (01:15→07:03)
[2017-09-29] MEDS: RESP: ALBUTEROL 2.5 MG/IPRATROPIUM 0.5 MG NEB (SCH) NEB ×4 (02:44→20:08)
[2017-09-29 04:49] LABS: HEMATOCRIT 35.9 % (39.0-51.0); HEMOGLOBIN 12.2 GM/DL (13.0-17.0); MEAN CELL VOLUME 89.5 FL (80.0-100.0); MEAN CORPUSCULAR HEMOGLOBIN 30.3 PG (27.0-34.0); MEAN CORPUSCULAR HGB CONC 33.9 % (32.0-36.0); MEAN PLATELET VOLUME 8.5 FL (7.0-11.0); PLATELET COUNT 159 TH/MM3 (150-450); RED BLOOD COUNT 4.01 MIL/MM3 (4.50-5.90); RED CELL DISTRIBUTION WIDTH 13.4 % (11.6-17.2); WHITE BLOOD COUNT 19.3 TH/MM3 (4.0-11.0)
[2017-09-29 05:09] LABS: BICARBONATE 20.4 MEQ/L (21.0-32.0); CALCIUM 7.7 MG/DL (8.5-10.1); CREATININE 1.37 MG/DL (0.60-1.30); MAGNESIUM 1.9 MG/DL (1.5-2.5)
--- NOTE | 2017-09-29 05:55 | RADRPT ---
EXAM DATE/TIME: 09/29/2017 03:19 [facility] COMPARISON: CHEST SINGLE AP, September 28, 2017, 12:38. INDICATIONS : Short of breath. MEDICAL HISTORY : Hypothyroidism. Coroanry artery disease SURGICAL HISTORY : Skin CA removed CABG. ENCOUNTER: Subsequent ACUITY: 2 days PAIN SCORE: 0/10 LOCATION: Bilateral chest FINDINGS: The patient has been extubated and nasogastric tube has been removed. Right neck central line remains in place. Left thoracostomy tube and midline chest tube remain in place. There is slight central vas cular congestion and mild opacities in the lung bases. Cardiac contours are grossly stable. CONCLUSION: Slightly diminished aeration post extubation Mayank Onofre MD on September 29, 2017 at 5:52 Board Certified Radiologist. This report was verified electronically.
[2017-09-29] MEDS: PANTOPRAZOLE SOD 40 MG DELAYED RELEASE TAB PO SCH (07:01)
[2017-09-29] MEDS: LEVOTHYROXINE SODIUM 100 MCG TAB PO SCH (07:01)
[2017-09-29] MEDS: LEVOTHYROXINE SODIUM 75 MCG TAB PO SCH (07:02)
[2017-09-29] MEDS: AMIODARONE 200 MG TAB PO SCH ×3 (07:02→20:59)
[2017-09-29] MEDS: DOCUSATE SODIUM 100 MG CAP PO SCH ×2 (09:00→20:59)
[2017-09-29] MEDS ORDERED: DEXTROSE 50% IN WATER 50 ML VIAL(D50) IV PUSH PRN (09:00)
[2017-09-29] MEDS: MAGNESIUM HYDROXIDE SUSP 30 ML CUP PO SCH (09:00)
[2017-09-29] MEDS: ASPIRIN 81 MG CHEW TAB PO SCH (09:00)
[2017-09-29] MEDS ORDERED: oxyCODONE/ACETAMINOPHEN 5 MG/325 MG TAB PO PRN (09:00)
[2017-09-29] MEDS ORDERED: GLUCAGON 1 MG/ML VIAL OTHER PRN (09:00)
[2017-09-29] MEDS ORDERED: BISACODYL 10 MG SUPP RECTAL PRN (09:00)
[2017-09-29] MEDS ORDERED: SOD PHOSPHATE/SOD BIPHOSPHATE (ADULT) ENEMA 133ML RECTAL PRN (09:00)
[2017-09-29] MEDS: MULTIVITAMINS/MINERALS THERAPEUTIC TAB PO SCH (09:00)
[2017-09-29] MEDS: SODIUM CHLORIDE 0.9% FLUSH 10 ML FLUSH IV FLUSH SCH ×2 (09:00→20:59)
[2017-09-29] MEDS: oxyCODONE/ACETAMINOPHEN 5 MG/325 MG TAB PO PRN ×3 (09:20→20:59)
[2017-09-29] MEDS: INSULIN ASPART SUPPLEMENTAL SCALE SQ SCH ×4 (09:53→22:00)
--- NOTE | 2017-09-29 10:02 | PD.CAR.PN ---
CVT Progress Note Subjective/Hospital Course: 71-year-old patient of Dr. Zaid Escamilla and Dr. Talon Long initially seen , who at that time reported some chest discomfort with some left arm pain , even occurred after starting some Imdur, underwent cardiac catheterization Dr. Long showing an ejection fraction of 55%. He had mid distal stenosis 70% , the circ at 80%, the RCA 80%. We were consulted to evaluate for coronary artery bypass grafting. The aorta was somewhat torturous. The CT scan was reviewed by Dr. Barbara Boudreaux. EF 60% PAST MEDICAL HISTORY: Coronary artery disease, angina, eczema, hyperlipidemia, hypertension, skin cancer, sleep apnea, statin intolerance, PAST SURGICAL HISTORY: Include rectal fissure repair, umbilical hernia repair. surgery 09/28 CABG x 3, DE JESUS to LAD - fair, SVG to OM2 - good, SVG to PDA - good , L EVH extubated after surgery crystalloid 2300cc, 750cc cell saver, 150cc EBL 09/29 weaned off of cleviprex and insulin gtt NSR no acute changes having some pain from chest tube chest tube drained 150cc/ 12 hrs transfer to stepdown Objective: GENERAL: A&0 x 3 SKIN: Warm and dry. prevena dressing to chest , lucie wrap left leg HEAD: Normocephalic. EYES: No scleral icterus. No injection or drainage. NECK: Supple, trachea midline. No JVD or lymphadenopathy. CARDIOVASCULAR: Regular rate and rhythm without murmurs, gallops, or rubs. RESPIRATORY: Breath sounds equal bilaterally. No accessory muscle use. chest tube no air leak GASTROINTESTINAL: Abdomen soft, non-tender, nondistended. MUSCULOSKELETAL: No cyanosis, or edema. BACK: Nontender without obvious deformity. No CVA tenderness. Vital Signs Date Time Temp Pulse Resp B/P (MAP) Pulse Ox O2 Delivery O2 Flow Rate FiO2 09/29/17 07:42 16 09/29/17 07:42 16 09/29/17 07:30 97.0 74 16 118/69 (85) 97 113/46 (68) 09/29/17 07:30 97 Nasal Cannula 3.00 09/29/17 07:30 75 09/29/17 04:00 98.9 78 16 117/65 (82) 97 118/47 (70) 09/29/17 03:00 95 4/4/18 00:30 68 124/52 09/29/17 00:00 98.1 76 16 113/58 (76) 99 128/55 (79) 09/28/17 23:00 87 09/28/17 22:30 88 146/91 09/28/17 21:14 96 Nasal Cannula 3.00 09/28/17 20:46 98 Nasal Cannula 4.00 09/28/17 20:00 99 Nasal Cannula 4.00 09/28/17 19:00 64 09/28/17 19:00 96.8 70 14 114/67 (83) 99 126/63 (84) 09/28/17 17:20 69 155/74 09/28/17 17:00 69 139/67 09/28/17 15:00 97.0 16 137/76 (96) 97 133/64 (87) 09/28/17 15:00 73 09/28/17 14:02 97 Nasal Cannula 5 09/28/17 14:02 97 Nasal Cannula 5.00 09/28/17 13:56 40 09/28/17 13:56 97 Nasal Cannula 5.00 09/28/17 13:51 64 157/70 09/28/17 12:45 40 09/28/17 12:42 99 60 09/28/17 12:33 57 09/28/17 12:33 97.4 57 12 115/64 (81) 99 110/48 (68) Labs: Laboratory Tests Test 09/29/17 04:00 White Blood Count 19.3 TH/MM3 (4.0-11.0) Red Blood Count 4.01 MIL/MM3 (4.50-5.90) Hemoglobin 12.2 GM/DL (13.0-17.0) Hematocrit 35.9 % (39.0-51.0) Mean Corpuscular Volume 89.5 FL (80.0-100.0) Mean Corpuscular Hemoglobin 30.3 PG (27.0-34.0) Mean Corpuscular Hemoglobin Concent 33.9 % (32.0-36.0) Red Cell Distribution Width 13.4 % (11.6-17.2) Platelet Count 159 TH/MM3 (150-450) Mean Platelet Volume 8.5 FL (7.0-11.0) Blood Urea Nitrogen 25 MG/DL (7-18) Creatinine 1.37 MG/DL (0.60-1.30) Random Glucose 133 MG/DL (74-106) Calcium Level 7.7 MG/DL (8.5-10.1) Magnesium Level 1.9 MG/DL (1.5-2.5) Sodium Level 142 MEQ/L (136-145) Potassium Level 4.4 MEQ/L (3.5-5.1) Chloride Level 112 MEQ/L (98-107) Carbon Dioxide Level 20.4 MEQ/L (21.0-32.0) Anion Gap 10 MEQ/L (5-15) Estimat Glomerular Filtration Rate 51 ML/MIN (>89) Result Diagram: 09/29/17 0400 09/29/17 0400 Telemetry: NSR (1) Hyperlipemia Plan: statin intolerance (2) Hypertension (3) S/P CABG x 3 Plan: ASA, no statin with hx of myopathy amiodarone, start BB gentle diuresis pulm toileting OOB , ambulate (4) CAD (coronary artery disease) (5) Angina pectoris Lien Elmore Sep 29, 2017 10:02
--- NOTE | 2017-09-29 13:08 | EKG ---
Date Performed: 09/29/2017 Time Performed: 06:42:20 PTAGE: 71 years EKG: Sinus rhythm . Lead(s) unsuitable for analysis: V1 V2 Normal ECG based on available leads PREVIOUS TRACING : 09/17/2017 06.16 DOCTOR: Jemal Collado Interpretating Date/Time 09/29/2017 13:04:57
[2017-09-29] MEDS: SENNOSIDES 8.6 MG TAB PO SCH (20:59)
[2017-09-29] MEDS: METOPROLOL TARTRATE 25 MG TAB PO SCH (20:59)
[2017-09-30] VITALS (25 sets, daily range): BP systolic 117–154; BP diastolic 58–83; PULSE 64–96; RESP 16–20; TEMP 98–98.6; O2SAT 93–95
[2017-09-30] MEDS: oxyCODONE/ACETAMINOPHEN 5 MG/325 MG TAB PO PRN ×6 (00:17→21:39)
[2017-09-30] MEDS: INSULIN ASPART SUPPLEMENTAL SCALE SQ SCH ×5 (02:00→17:01)
[2017-09-30] MEDS: LEVOTHYROXINE SODIUM 100 MCG TAB PO SCH (05:43)
[2017-09-30] MEDS: LEVOTHYROXINE SODIUM 75 MCG TAB PO SCH (05:43)
[2017-09-30] MEDS: PANTOPRAZOLE SOD 40 MG DELAYED RELEASE TAB PO SCH (05:43)
[2017-09-30] MEDS: AMIODARONE 200 MG TAB PO SCH ×3 (05:44→21:40)
[2017-09-30 06:21] LABS: AUTOMATED NEUTROPHIL # 10.5 TH/MM3 (1.8-7.7); BASOPHIL % 0.1 % (0.0-2.0); EOSINOPHIL % 0.4 % (0.0-4.0); HEMATOCRIT 31.4 % (39.0-51.0); HEMOGLOBIN 10.7 GM/DL (13.0-17.0); LYMPH % 6.7 % (9.0-44.0); LYMPHOCYTE # 0.8 TH/MM3 (1.0-4.8); MEAN CELL VOLUME 90.5 FL (80.0-100.0); MEAN CORPUSCULAR HEMOGLOBIN 30.9 PG (27.0-34.0); MEAN CORPUSCULAR HGB CONC 34.1 % (32.0-36.0); MEAN PLATELET VOLUME 8.9 FL (7.0-11.0); MONO % 8.8 % (0.0-8.0); MONOCYTE # 1.1 TH/MM3 (0-0.9); PLATELET COUNT 110 TH/MM3 (150-450); RED BLOOD COUNT 3.47 MIL/MM3 (4.50-5.90); RED CELL DISTRIBUTION WIDTH 13.6 % (11.6-17.2); WHITE BLOOD COUNT 12.5 TH/MM3 (4.0-11.0)
[2017-09-30 06:40] LABS: BICARBONATE 24.8 MEQ/L (21.0-32.0); CALCIUM 7.6 MG/DL (8.5-10.1); CREATININE 1.27 MG/DL (0.60-1.30); MAGNESIUM 2.2 MG/DL (1.5-2.5)
[2017-09-30] MEDS: RESP: ALBUTEROL 2.5 MG/IPRATROPIUM 0.5 MG NEB (SCH) NEB ×3 (07:31→20:58)
[2017-09-30] MEDS: SODIUM CHLORIDE 0.9% FLUSH 10 ML FLUSH IV FLUSH SCH ×2 (09:00→21:43)
[2017-09-30] MEDS: METOPROLOL TARTRATE 25 MG TAB PO SCH ×2 (09:00→21:42)
[2017-09-30] MEDS: DOCUSATE SODIUM 100 MG CAP PO SCH ×2 (09:39→21:40)
[2017-09-30] MEDS: POLYETHYLENE GLYCOL 17 GM PKG PO SCH (09:39)
[2017-09-30] MEDS: ASPIRIN 81 MG CHEW TAB PO SCH (09:39)
[2017-09-30] MEDS: MAGNESIUM HYDROXIDE SUSP 30 ML CUP PO SCH (09:39)
[2017-09-30] MEDS: MULTIVITAMINS/MINERALS THERAPEUTIC TAB PO SCH (09:39)
[2017-09-30] MEDS ORDERED: POTASSIUM CHLORIDE 10 MEQ CONTROLLED RELEASE TAB PO ONE (10:15)
[2017-09-30] MEDS ORDERED: FUROSEMIDE 40 MG/4 ML VIAL IV PUSH ONE (10:15)
--- NOTE | 2017-09-30 15:44 | PD.CAR.PN ---
CVT Progress Note Subjective/Hospital Course: 71-year-old patient of Dr. Zaid Escamilla and Dr. Talon Long initially seen , who at that time reported some chest discomfort with some left arm pain , even occurred after starting some Imdur, underwent cardiac catheterization Dr. Long showing an ejection fraction of 55%. He had mid distal stenosis 70% , the circ at 80%, the RCA 80%. We were consulted to evaluate for coronary artery bypass grafting. The aorta was somewhat torturous. The CT scan was reviewed by Dr. Barbara Boudreaux. EF 60% PAST MEDICAL HISTORY: Coronary artery disease, angina, eczema, hyperlipidemia, hypertension, skin cancer, sleep apnea, statin intolerance, PAST SURGICAL HISTORY: Include rectal fissure repair, umbilical hernia repair. surgery 09/28 CABG x 3, DE JESUS to LAD - fair, SVG to OM2 - good, SVG to PDA - good , L EVH extubated after surgery crystalloid 2300cc, 750cc cell saver, 150cc EBL 09/29 weaned off of cleviprex and insulin gtt NSR no acute changes having some pain from chest tube chest tube drained 150cc/ 12 hrs transfer to stepdown 09/30 + weight / one dose of lasix chest tubes dc without difficultly on BB , ASA Objective: Vital Signs Date Time Temp Pulse Resp B/P (MAP) Pulse Ox O2 Delivery O2 Flow Rate FiO2 09/30/17 15:00 79 09/30/17 15:00 94 Room Air 09/30/17 15:00 98.2 82 20 133/68 (89) 94 09/30/17 14:00 76 09/30/17 13:00 84 09/30/17 12:00 79 09/30/17 11:00 72 09/30/17 11:00 98.4 72 20 141/72 (95) 94 09/30/17 11:00 94 Room Air 09/30/17 10:00 94 09/30/17 09:00 82 09/30/17 08:00 96 09/30/17 07:32 95 21 09/30/17 07:15 68 09/30/17 07:15 98.1 74 20 145/73 (97) 93 09/30/17 07:15 93 Room Air 09/30/17 06:01 64 09/30/17 05:10 64 09/30/17 05:03 95 Room Air 09/30/17 05:02 98.6 74 133/67 (89) 95 09/30/17 04:00 68 09/30/17 03:00 68 09/30/17 02:00 66 09/30/17 01:19 94 Nasal Cannula 1.00 09/30/17 01:17 98.1 73 149/83 (105) 94 09/30/17 01:00 66 09/30/17 00:00 72 09/29/17 23:00 66 09/29/17 22:53 94 Nasal Cannula 1.00 09/29/17 22:52 98.4 82 135/68 (90) 94 09/29/17 22:00 74 09/29/17 21:00 98 09/29/17 20:08 95 Nasal Cannula 1.50 09/29/17 20:00 76 09/29/17 19:00 82 09/29/17 18:00 74 09/29/17 17:00 73 09/29/17 16:00 80 Labs: Laboratory Tests Test 09/30/17 05:40 White Blood Count 12.5 TH/MM3 (4.0-11.0) Red Blood Count 3.47 MIL/MM3 (4.50-5.90) Hemoglobin 10.7 GM/DL (13.0-17.0) Hematocrit 31.4 % (39.0-51.0) Mean Corpuscular Volume 90.5 FL (80.0-100.0) Mean Corpuscular Hemoglobin 30.9 PG (27.0-34.0) Mean Corpuscular Hemoglobin Concent 34.1 % (32.0-36.0) Red Cell Distribution Width 13.6 % (11.6-17.2) Platelet Count 110 TH/MM3 (150-450) Mean Platelet Volume 8.9 FL (7.0-11.0) Neutrophils (%) (Auto) 84.0 % (16.0-70.0) Lymphocytes (%) (Auto) 6.7 % (9.0-44.0) Monocytes (%) (Auto) 8.8 % (0.0-8.0) Eosinophils (%) (Auto) 0.4 % (0.0-4.0) Basophils (%) (Auto) 0.1 % (0.0-2.0) Neutrophils # (Auto) 10.5 TH/MM3 (1.8-7.7) Lymphocytes # (Auto) 0.8 TH/MM3 (1.0-4.8) Monocytes # (Auto) 1.1 TH/MM3 (0-0.9) Eosinophils # (Auto) 0.0 TH/MM3 (0-0.4) Basophils # (Auto) 0.0 TH/MM3 (0-0.2) CBC Comment DIFF FINAL Differential Comment Blood Urea Nitrogen 22 MG/DL (7-18) Creatinine 1.27 MG/DL (0.60-1.30) Random Glucose 113 MG/DL (74-106) Calcium Level 7.6 MG/DL (8.5-10.1) Magnesium Level 2.2 MG/DL (1.5-2.5) Sodium Level 139 MEQ/L (136-145) Potassium Level 4.3 MEQ/L (3.5-5.1) Chloride Level 107 MEQ/L (98-107) Carbon Dioxide Level 24.8 MEQ/L (21.0-32.0) Anion Gap 7 MEQ/L (5-15) Estimat Glomerular Filtration Rate 56 ML/MIN (>89) Result Diagram: 09/30/17 0540 09/30/17 0540 (1) Hyperlipemia Plan: statin intolerance (2) Hypertension (3) S/P CABG x 3 Plan: ASA, no statin with hx of myopathy amiodarone, start BB gentle diuresis pulm toileting OOB , ambulate chest tube dc without difficultly (4) CAD (coronary artery disease) (5) Angina pectoris Lien Elmore Sep 30, 2017 15:44
[2017-09-30] MEDS: SENNOSIDES 8.6 MG TAB PO SCH (21:42)
[2017-10-01] VITALS (8 sets, daily range): BP systolic 129–135; BP diastolic 68–73; PULSE 66–74; RESP 16; TEMP 98.4–98.8; O2SAT 92–94
[2017-10-01] MEDS: INSULIN ASPART SUPPLEMENTAL SCALE SQ SCH ×5 (00:15→14:00)
[2017-10-01 05:46] LABS: BICARBONATE 29.5 MEQ/L (21.0-32.0); CALCIUM 7.8 MG/DL (8.5-10.1); CREATININE 1.25 MG/DL (0.60-1.30)
--- NOTE | 2017-10-01 06:14 | RADRPT ---
EXAM DATE/TIME: 10/01/2017 05:29 [facility] COMPARISON: CHEST SINGLE AP, September 29, 2017, 3:19. INDICATIONS : Chest tube removal, evaluate for pneumothorax. MEDICAL HISTORY : Hypothyroidism. Coroanry artery disease SURGICAL HISTORY : Skin CA removed CABG. ENCOUNTER: Initial ACUITY: 1 day PAIN SCORE: 2/10 LOCATION: Right chest FINDINGS: Single AP view of the chest. Right IJ central venous catheter remains in place. Persistent patchy gomez ateral lower lung zone pulmonary opacity. Left-sided chest tube no longer seen. No evidence of pleura l effusion or pneumothorax. CONCLUSION: Left-sided chest tube no longer seen. No evidence of pneumothorax. Herman Marquez MD on October 01, 2017 at 6:11 Board Certified Radiologist. This report was verified electronically.
[2017-10-01] MEDS: LEVOTHYROXINE SODIUM 100 MCG TAB PO SCH (07:11)
[2017-10-01] MEDS: AMIODARONE 200 MG TAB PO SCH (07:12)
[2017-10-01] MEDS: LEVOTHYROXINE SODIUM 75 MCG TAB PO SCH (07:12)
[2017-10-01] MEDS: PANTOPRAZOLE SOD 40 MG DELAYED RELEASE TAB PO SCH (07:12)
[2017-10-01] MEDS: oxyCODONE/ACETAMINOPHEN 5 MG/325 MG TAB PO PRN ×2 (07:14→12:35)
[2017-10-01] MEDS: SODIUM CHLORIDE 0.9% FLUSH 10 ML FLUSH IV FLUSH SCH (09:00)
[2017-10-01] MEDS: POLYETHYLENE GLYCOL 17 GM PKG PO SCH (09:17)
[2017-10-01] MEDS: MAGNESIUM HYDROXIDE SUSP 30 ML CUP PO SCH (09:17)
[2017-10-01] MEDS: DOCUSATE SODIUM 100 MG CAP PO SCH (09:17)
[2017-10-01] MEDS: MULTIVITAMINS/MINERALS THERAPEUTIC TAB PO SCH (09:18)
[2017-10-01] MEDS: ASPIRIN 81 MG CHEW TAB PO SCH (09:19)
[2017-10-01] MEDS: METOPROLOL TARTRATE 25 MG TAB PO SCH (09:19)
[2017-10-01] MEDS: RESP: ALBUTEROL 2.5 MG/IPRATROPIUM 0.5 MG NEB (SCH) NEB (09:32)
[2017-10-01] MEDS ORDERED: ASPI81 PO (10:47)
[2017-10-01] MEDS ORDERED: DOCU1CAP39 PO (10:47)
[2017-10-01] MEDS ORDERED: THERM PO (10:47)
[2017-10-01] MEDS ORDERED: OXYC1TAB63 PO (10:47)
[2017-10-01] MEDS ORDERED: AMIO200T PO (10:47)
--- NOTE | 2017-10-01 10:56 | HHI.DS ---
Discharge Summary Admission Date Sep 28, 2017 at 05:35 Discharge Date: Oct 01, 2017 Admitting Diagnosis chest pain , CAD (1) CAD (coronary artery disease) Diagnosis: Principal ICD Codes: I25.10 - Atherosclerotic heart disease of [place] coronary artery without angina pectoris (2) Angina pectoris Diagnosis: Principal ICD Codes: I20.9 - Angina pectoris, unspecified (3) Hyperlipemia Diagnosis: Principal ICD Codes: E78.5 - Hyperlipidemia, unspecified (4) Hypertension Diagnosis: Principal ICD Codes: I10 - Essential (primary) hypertension (5) Obstructive sleep apnea Diagnosis: Principal ICD Codes: G47.33 - Obstructive sleep apnea (adult) (pediatric) (6) S/P CABG x 3 Diagnosis: Secondary ICD Codes: Z95.1 - Presence of aortocoronary bypass graft Procedures CABG x 3 09/28 DE JESUS to LAD - fair SVG to OM2 - good SVG to PDA - good EVH Brief History 71-year-old patient of Dr. Zaid Escamilla and Dr. Talon Long initially seen , who at that time reported some chest discomfort with some left arm pain, even occurred after starting some Imdur, underwent cardiac catheterization Dr. Long showing an ejection fraction of 55%. He had mid distal stenosis 70% , the circ at 80%, the RCA 80%. We were consulted to evaluate for coronary artery bypass grafting. The aorta was somewhat torturous. The CT scan was reviewed by Dr. Barbara Boudreaux. EF 60% PAST MEDICAL HISTORY: Coronary artery disease, angina, eczema, hyperlipidemia, hypertension, skin cancer, sleep apnea, statin intolerance, PAST SURGICAL HISTORY: Include rectal fissure repair, umbilical hernia repair. CBC/BMP: 09/30/17 0540 10/01/17 0445 Significant Findings Laboratory Tests Test 09/29/17 04:00 09/30/17 05:40 10/01/17 04:45 White Blood Count 19.3 TH/MM3 (4.0-11.0) 12.5 TH/MM3 (4.0-11.0) Red Blood Count 4.01 MIL/MM3 (4.50-5.90) 3.47 MIL/MM3 (4.50-5.90) Hemoglobin 12.2 GM/DL (13.0-17.0) 10.7 GM/DL (13.0-17.0) Hematocrit 35.9 % (39.0-51.0) 31.4 % (39.0-51.0) Blood Urea Nitrogen 25 MG/DL (7-18) 22 MG/DL (7-18) Creatinine 1.37 MG/DL (0.60-1.30) Random Glucose 133 MG/DL (74-106) 113 MG/DL (74-106) Calcium Level 7.7 MG/DL (8.5-10.1) 7.6 MG/DL (8.5-10.1) 7.8 MG/DL (8.5-10.1) Chloride Level 112 MEQ/L (98-107) Carbon Dioxide Level 20.4 MEQ/L (21.0-32.0) Estimat Glomerular Filtration Rate 51 ML/MIN (>89) 56 ML/MIN (>89) 57 ML/MIN (>89) Platelet Count 110 TH/MM3 (150-450) Neutrophils (%) (Auto) 84.0 % (16.0-70.0) Lymphocytes (%) (Auto) 6.7 % (9.0-44.0) Monocytes (%) (Auto) 8.8 % (0.0-8.0) Neutrophils # (Auto) 10.5 TH/MM3 (1.8-7.7) Lymphocytes # (Auto) 0.8 TH/MM3 (1.0-4.8) Monocytes # (Auto) 1.1 TH/MM3 (0-0.9) Imaging Last Impressions Chest X-Ray 10/01/17 0600 Signed Impressions: Service Date/Time: Sunday, October 01, 2017 05:29 - CONCLUSION: Left-sided chest tube no longer seen. No evidence of pneumothorax. Herman Marquez MD PE at Discharge GENERAL: A&O x 3 SKIN: Warm and dry. prevena dressing to chest , incision to leg HEAD: Normocephalic. EYES: No scleral icterus. No injection or drainage. NECK: Supple, trachea midline. No JVD or lymphadenopathy. CARDIOVASCULAR: Regular rate and rhythm without murmurs, gallops, or rubs. RESPIRATORY: Breath sounds equal bilaterally. No accessory muscle use. GASTROINTESTINAL: Abdomen soft, non-tender, nondistended. MUSCULOSKELETAL: No cyanosis, or edema. BACK: Nontender without obvious deformity. No CVA tenderness. Hospital Course surgery 09/28 CABG x 3, DE JESUS to LAD - fair, SVG to OM2 - good, SVG to PDA - good , L EVH extubated after surgery crystalloid 2300cc, 750cc cell saver, 150cc EBL / weaned off of cleviprex and insulin gtt NSR no acute changes having some pain from chest tube chest tube drained 150cc/ 12 hrs transfer to stepdown 4/5 + weight / one dose of lasix chest tubes dc without difficultly on BB , ASA 4/6 doing well, remains in NSR CXR stable stable to dc home today after pt has BM Pt Condition on Discharge: Good Discharge Disposition: Disch w/ Home Health Serv Discharge Instructions DIET: Follow Instructions for: Heart Healthy Diet Activities you can perform: Full Weight Bearing, Shower Only-No Bath Activities to avoid: Strenuous Activity, Driving Additional Activity Instructio: no lifting > 8 lbs or gallon of milk Follow up Referrals: Cardiology - 4 Weeks with Talon Long MD PCP Follow-up - 2 Weeks with Zaid Escamilla DO Surgical - 2 Weeks with Lien lEmore New Orders: BASIC METABOLIC PROF - 2 Weeks CBC NO DIFF - 2 Weeks X-RAY CHEST PA & LAT - 2 Weeks New Medications: Amiodarone (Amiodarone) 200 Mg Tab 200 MG PO Q12HR for heart rhythm, #28 TAB 0 Refills Aspirin (Tgt Aspirin) 81 Mg Chw 81 MG PO DAILY for Blood Clot Prevention, #30 EA 2 Refills Docusate Sodium (Dok) 100 Mg Cap 100 MG PO BID for Constipation, #60 CAP 0 Refills Multiple Vitamins W/ Minerals (Thera M Plus) 1 Tab 1 TAB PO DAILY for multi vitamin, #30 TAB 2 Refills Oxycodone HCl/Acetaminophen (Oxycodone-Acetaminophen 5-325) 5 Mg-325 Mg Tablet 1 TAB PO Q4H PRN for PAIN SCALE 1 TO 5, #40 TAB 0 Refills Continued Medications: B-Complex Vitamins (B Complex) 1 Cap 1 CAP PO DAILY for Nutritional Supplement, #30 CAP 0 Refills Levothyroxine (Levothyroxine) 175 Mcg Tab 175 MCG PO DAILY for Thyroid, #30 TAB 0 Refills Metoprolol Succinate ER 24 HR (Metoprolol Succinate ER 24 HR) 25 Mg Tab 25 MG PO DAILY, #30 TAB 0 Refills Lien Elmore Oct 01, 2017 10:56
[2017-10-01] MEDS ORDERED: FUROSEMIDE 20 MG/2 ML VIAL IV PUSH ONE (11:00)
[2017-10-01] MEDS ORDERED: POTASSIUM CHLORIDE 10 MEQ CONTROLLED RELEASE TAB PO ONE (11:00)
[2017-10-01] MEDS ORDERED: AMIODARONE 200 MG TAB PO SCH (21:00)
== END 2017-10-01 15:17 | disposition home health service (06) | DRG 236 ==
LOC: HSDI 05:35 → HCVI 12:30 → HCPC 09-29 10:53
PROVIDERS: ADMIT Thoracic Surgery (Cardiothoracic Vascular Surgery); ATTEND Thoracic Surgery (Cardiothoracic Vascular Surgery)
PROC: 06BQ4ZZ Excision of Left Saphenous Vein, Percutaneous Endoscopic Approach (ICD-10-PCS; 2017-09-28)
PROC: 5A1221Z Performance of Cardiac Output, Continuous (ICD-10-PCS; 2017-09-28)
PROC: 02100Z9 Bypass Coronary Artery, One Artery from Left Internal Mammary, Open Approach (ICD-10-PCS; principal; 2017-09-28 08:08)
PROC: 021109W Bypass Coronary Artery, Two Arteries from Aorta with Autologous Venous Tissue, Open Approach (ICD-10-PCS; 2017-09-28 08:08)
DX: I25.119 Atherosclerotic heart disease of native coronary artery with unspecified angina pectoris (principal); I10 Essential (primary) hypertension; E78.5 Hyperlipidemia, unspecified; L30.9 Dermatitis, unspecified; G47.33 Obstructive sleep apnea (adult) (pediatric); Z79.82 Long term (current) use of aspirin; Z85.828 Personal history of other malignant neoplasm of skin; Z87.891 Personal history of nicotine dependence; Z82.49 Family history of ischemic heart disease and other diseases of the circulatory system
CPT/HCPCS: 71045; 76937; 80048; 82948; 83735; 85025; 85027; 86850; 86900; 86901; 86920; 93005; 94002; 94150; 94640; 94664; 94667; 94668; C9248; J0131; J0690; J1644; J1815; J1817; J1885; J1940; J2150; J2250; J2370; J2440; J2720; J2930; J3010; J3370; J3475; J3480; J7040; J7050; J7120; P9047